=== PATIENT | female | born 1985 | race Caucasian/White ===

== ENCOUNTER 2016-09-29 00:20 | Emergency (ER) | payer OTHER ==
[~2016-09-29] VITALS: Ht 166.4 cm; Wt 104.1 kg
[~2016-09-29 00:20] MED LIST: FERR325T51 PO; PRENTAB26 PO
[2016-09-29 00:26] VITALS: TEMP 36.7; Ht 166.4 cm; Wt 104.1 kg
--- NOTE | 2016-09-29 01:27 | EMERGENCY ROOM VISIT NOTE ---
ED Visit Note First contact with patient: 00:31 Chief Complaint: Tick Bite on LEFT Lower Leg History of Present Illness: Patient is a 31-year-old female who presents to the emergency department today for tick bite to the LEFT lower leg. She reports that she remove the entire tick. She wishes for this to be evaluated as she is concern for possible infection. The patient rates her current discomfort as 0/ 10. She denies any fevers, chills, bodyaches, headaches, chest pain, or Bullseye rash. Tetanus status up-to-date. Medications: Reviewed and discussed with the patient. Allergies: No known allergies. PMH: No pertinent past medical history. SHx: Patient is a 31-year-old female who lives locally. ROS: All pertinent positive and negative review of systems are appropriately documented in the History of Present Illness. Physical Exam: VITAL SIGNS - Vital signs and Nursing Notes were reviewed. GENERAL -31-year-old female, well-developed, well-nourished, and in no acute distress. SKIN -small area of ecchymosis noted to the anterior surface of the LEFT escobar. No surrounding erythema. No warmth to touch. No fluctuance to palpation. No bull's-eye rash. NEURO - Patient is A&Ox3 and communicates appropriately with the provider. ED Course: Patient was seen and evaluated by myself. The patient was treated with a one- time prophylactic dose of doxycycline. Patient will follow-up with her primary care provider or return for any change or worsening symptoms. Patient discharged home in good condition. In the evaluation and treatment of this patient, the following differential diagnoses were considered: Cellulitis, dermatitis, foreign body, Lyme, amongst others. Impression: Tick Bite to LEFT Lower Extremity Discharge Instructions: You've been seen in the emergency department today for a tick bite to the LEFT lower extremity. You've been treated with a one-time dose of doxycycline prophylactically. Follow-up with your primary care provider from today's visit. Return for any changing or worsening symptoms. Problem List Medical Problems: (1) FAM HX-DIABETES MELLITUS Status: Chronic (2) FAMILY HISTORY OF OTHER CARDIOVASCULAR DISEASES Status: Chronic (3) FAMILY HX-MALIGNANCY NOS Status: Chronic (4) LUMBAGO Status: Chronic (5) TOBACCO USE DISORDER Status: Chronic Current/Historical Medications Scheduled Ferrous Sulfate (Iron Supplement), 1 TAB PO 2XWK Multivit/Min/Iron/Fol Ac/Pren ( Vitamin), 2 TAB PO DAILY Allergies Coded Allergies: No Known Allergies (Verified , 09/29/16) Vital Signs Date Time Temp Pulse Resp B/P Pulse Ox O2 Delivery O2 Flow Rate FiO2 09/29/16 01:36 76 18 145/97 96 09/29/16 00:26 36.7 98 20 146/100 98 Room Air Medications Administered Medications (Trade) Dose Ordered Sig/Vivian Route Start Time Stop Time Status Last Admin Dose Admin Doxycycline Hyclate (Vibramycin Cap) 200 mg ONE ONCE PO 09/29/16 01:30 09/29/16 01:31 DC 09/29/16 01:30 200 MG Departure Information Impression Primary Impression: Tick bite Dispostion Home / Self-Care Condition GOOD Referrals Harry Pandey M.D. (PCP) Patient Instructions My [facility] Additional Instructions You've been seen in the emergency department today for a tick bite to the LEFT lower extremity. You've been treated with a one-time dose of doxycycline prophylactically. Follow-up with your primary care provider from today's visit. Return for any changing or worsening symptoms. Problem Qualifiers Primary Impression: Tick bite Encounter type: initial encounter Qualified Codes: W57.XXXA - Bitten or stung by nonvenomous insect and other nonvenomous arthropods, initial encounter
[2016-09-29] MEDS ORDERED: DOXYCYCLINE HYCLATE 100 MG CAP PO ONE (01:30)
[2016-09-29 01:36] VITALS: BP 145/97; PULSE 76; O2SAT 96
== END 2016-09-29 01:37 | disposition home or self-care (01) ==
LOC: C.EDB 00:21
DX: S80.862A Insect bite (nonvenomous), left lower leg, initial encounter (principal); W57.XXXA Bitten or stung by nonvenomous insect and other nonvenomous arthropods, initial encounter; Y92.89 Other specified places as the place of occurrence of the external cause; Z83.3 Family history of diabetes mellitus; Z82.49 Family history of ischemic heart disease and other diseases of the circulatory system; Z80.9 Family history of malignant neoplasm, unspecified; M54.5 Low back pain; Z72.0 Tobacco use

== ENCOUNTER 2018-09-14 08:21 | Inpatient (IN) ==
[2018-09-14] MEDS ORDERED: LACTATED RINGER'S 1,000 ML IV PRN ×2 (08:54→10:17)
[2018-09-14] MEDS ORDERED: OXYTOCIN 30 UNITS/500 ML BAG IV PRN ×2 (08:54→16:24)
[2018-09-14] MEDS ORDERED: LACTATED RINGER'S 1,000 ML IV SCH (09:00)
--- NOTE | 2018-09-14 09:00 | History & Physical Report ---
Date of Service September 14, 2018 Assessment & Plan (1) 39 weeks gestation of : Admit to L&D. Labs, IV, EFM/[place]. OK for epidural when she desires. History of Present Illness Chief Complaint: contractions Primary Care Provider: Harry Pandey MD 33yo @ 39 4/ with worsening contractions overnight. She reports scant vaginal bleeding, no leaking of fluid. + movement. complicated by obesity, tobacco use. Allergies Allergy/AdvReac Type Severity Reaction Status Date / Time No Known Allergies Allergy Verified 09/29/16 00:26 Home Medications Home Medications Medication Instructions Recorded Confirmed Type Multivit/Min/Iron/Fol Ac/Pren 2 tab PO DAILY #0 tab 06/09/15 History ( Vitamin) FERROUS SULFATE (IRON SUPPLEMENT) 1 tab PO 2XWK 30 Days #60 tab 11/22/15 History Physical Exam Vital Signs (Past 24 Hours): Last Vital Signs Pulse 83 09/14/18 08:31 BP 129/78 09/14/18 08:31 Physical Exam: Gen: AAOx3 NAD CV: RRR L: CTAB Abd: soft, gravid, NTTP Ext: no edema SVE: 4/80/-2 FHT: Cat 1 toco: Q 2-4
[2018-09-14 09:15] LABS: Hematocrit (blood only) 35.8 % (37-47); Hemoglobin 12.3 g/dL (12.0-16.0); Mean Corpuscular Volume 84.4 fL (80-100); Mean Platelet Volume 10.5 fL (7.4-10.4); Platelet Count 292 K/uL (130-400); RDW Coefficient of Variation 14.1 % (11.5-14.5); RDW Standard Deviation 43.4 fL (36.4-46.3); Red Blood Count 4.24 M/uL (4.2-5.4); White Blood Count 15.17 K/uL (4.8-10.8)
[2018-09-14] MEDS ORDERED: BUPIVACAINE 0.25% 30 ML VIAL ONE (09:22)
[2018-09-14 09:23] LABS: Mean Corpuscular Hgb Conc 34.4 g/dL (32-36)
[2018-09-14] MEDS ORDERED: ePHEDrine sulfate 50 MG/ML AMP ONE (09:23)
[2018-09-14] MEDS ORDERED: fentaNYL 2MCG/ML ROPIV 1.25MG/ML 100 ML BAG EPI ONE (09:23)
[2018-09-14] MEDS ORDERED: fentaNYL citrate 100 MCG/2 ML VIAL ONE (09:23)
--- NOTE | 2018-09-14 09:49 | Anesthesiology Consultation ---
Date of Service September 14, 2018 Assessment & Plan Chart Review Chart Review: Patient NOT seen in Pre Admission Testing and Acceptable Risk for Labor Epidural Consults Requested none ASA ASA3 Proposed Anesthesia Anesthesia Type: Labor Epidural Risk / Benefits Reviewed With: PT / POA / Parent / Guardian, Accepts Plan and Informed Consent Obtained NPO Date Last Intake of Fluids: 09/14/18 Time Last Intake of Fluids: 05:00 Date Last Intake of Solids: 09/13/18 Time Last Intake of Solids: 19:30 History Height/Weight Height: 5 ft 5.5 in Weight: 113.398 kg Allergies Allergy/AdvReac Type Severity Reaction Status Date / Time No Known Allergies Allergy Verified 09/29/16 00:26 Medications Home Medications Medication Instructions Recorded Confirmed Last Taken Multivit/Min/Iron/Fol Ac/Pren 2 tab PO DAILY #0 tab 06/09/15 Unknown ( Vitamin) FERROUS SULFATE (IRON SUPPLEMENT) 1 tab PO 2XWK 30 Days #60 tab 11/22/15 Unknown Active Medications Generic Name Dose Route Start Last Admin Trade Name Freq PRN Reason Stop Dose Admin Lactated Ringer's 1,000 mls @ 999 mls/hr 09/14/18 08:54 09/14/18 09:37 Lr IV 10/14/18 08:53 999 mls/hr .Q1H1M PRN Administration (Pre-Anesthesia) Past Medical History Medical History Anemia GERD (gastroesophageal reflux disease) Obesity Tobacco abuse Past Anesthesia History No Hx of Anesthesia Complications and No Family Hx of Anesthesia Complications History of PONV No Motion Sickness Screening History of Motion Sickness: No Social History Smoking Status: Current every day smoker Exercise / Class Metabolic Activity II 4-5 Yardwork/Stairs/Walk up hill Physical Exam Vital Signs Last Vital Signs Pulse 91 H 09/14/18 09:39 BP 129/78 09/14/18 08:31 Pulse Ox 98 09/14/18 09:39 Constitutional + obese ENMT Mouth: no dentition abnormality Thyromental Distance: > or= 3.5 Finger Breadths Mallampati Class: II Respiratory normal respiratory effort Auscultation: lungs clear to auscultation bilaterally Cardiovascular Rate/Rhythm: regular rate and regular rhythm Heart Sounds: no murmur Musculoskeletal Spine: lumbar spine normal to inspection; normal cervical ROM Neurologic moves all extremities Motor/Sensory: no sensory deficit Psychiatric Orientation: alert and oriented x 3 Testing Laboratory Results 09/14/18 09:02
[2018-09-14] MEDS ORDERED: PROMETHAZINE HCL 25 MG in SODIUM CHLORIDE 0.9% 50 ML IV PRN (10:17)
[2018-09-14] MEDS ORDERED: DiphenhydrAMINE HCL 50 MG/ML VIAL IV PRN (10:17)
[2018-09-14] MEDS ORDERED: fentaNYL 2MCG/ML ROPIV 1.25MG/ML 100 ML BAG EPI PRN (10:17)
[2018-09-14] MEDS ORDERED: NALBUPHINE HCL INJ 10 MG/ML AMP IV PRN (10:17)
[2018-09-14] MEDS ORDERED: ePHEDrine sulfate 50 MG/ML AMP IV PRN (10:17)
[2018-09-14] MEDS ORDERED: NALOXONE HCL 0.4 MG/1 ML VIAL/CARP IV PRN (10:17)
[2018-09-14] MEDS ORDERED: NALOXONE HCL 1 MG in SODIUM CHLORIDE 0.9% 1000ML 1,000 ML IV PRN (10:17)
[2018-09-14] MEDS ORDERED: ONDANSETRON INJ 2 MG/ML 2 ML VIAL IV PRN (10:17)
--- NOTE | 2018-09-14 16:02 | Procedure Note ---
Vaginal Delivery Summary Date of Service September 14, 2018 Vaginal Delivery Summary Predelivery diagnosis: 33-year-old at 39 weeks 4 days, spontaneous labor, smoker, obesity Postdelivery diagnoses: Same Procedure: Spontaneous vaginal delivery Surgeon: Dr. Barrios Complications: None Estimated blood loss: 300 mL Findings: Viable male , Apgars 8 and 8. Weight pending, please see nursing records. Description of delivery: Patient presented in spontaneous labor, received an epidural, progressed to complete dilation. She then began to push. She spontaneously vaginally delivered a viable male , from the cephalic presentation. The head delivered in the left occiput anterior position. Nuchal cord x1 was noted, easily reduced. The anterior shoulder was delivered, followed by the posterior shoulder, followed by the body. Baby was placed on mother's abdomen, a spontaneous cry was heard. The cord was doubly clamped and cut after 1 minute. Cord blood was obtained, the placenta was delivered spontaneously intact with three-vessel cord. Pitocin was given, the uterus became firm. The uterus and vagina are stopped of all clots and debris. The cervix vagina and perineum were inspected, no lacerations were noted. Excellent Hemostasis was observed. Mother and baby are recovering in the room in stable and good condition. Sponge, instrument, needle counts were correct at the conclusion of the delivery x2.
--- NOTE | 2018-09-14 16:08 | Anesthesia Procedure Note ---
Date of Service September 14, 2018 Anesthesia Post Epidural Note Vital Signs Vital Signs: Temp Pulse Resp BP Pulse Ox 36.7 C 92 H 22 149/81 H 99 09/14/18 14:31 09/14/18 15:57 09/14/18 14:31 09/14/18 15:57 09/14/18 15:19 Notes Mental Status: alert / awake / arousable Nausea / Vomiting: adequately controlled Pain: adequately controlled Airway Patency, RR, SpO2: stable & adequate BP & HR: stable & adequate Hydration State: stable & adequate Neuraxial Anesthesia: was administered Anesthetic Complications: no major complications apparent Epidural: Removed without complications and With tip intact
[2018-09-14] MEDS ORDERED: DIPHTHERIA/TETANUS/PERTUSSIS 0.5 ML SYR/VIAL IM ONE (16:24)
[2018-09-14] MEDS ORDERED: OXYCODONE/ACETAMINOPHEN 5mg/325mg TAB PO PRN (16:24)
[2018-09-14] MEDS ORDERED: BENZOCAINE 20% AER SPR 82.5 GM CAN EXT PRN (16:24)
[2018-09-14] MEDS ORDERED: SUPERCREAM 0.870% 15 GM JAR EXT PRN (16:24)
[2018-09-14] MEDS ORDERED: HYDROCORTISONE ACETATE 25 MG SUPP PR PRN (16:24)
[2018-09-14] MEDS ORDERED: BISACODYL 10 MG SUPP PR PRN (16:24)
[2018-09-14] MEDS: ACETAMINOPHEN 325 MG TAB PO PRN (16:36)
[2018-09-14] MEDS: IBUPROFEN 600 MG TAB PO PRN (20:35)
[2018-09-14] MEDS: DOCUSATE SODIUM 100 MG CAP PO SCH (20:36)
[2018-09-15] MEDS: IBUPROFEN 600 MG TAB PO PRN ×4 (02:59→23:59)
[2018-09-15] MEDS: ACETAMINOPHEN 325 MG TAB PO PRN ×2 (03:00→12:13)
[2018-09-15 06:57] LABS: Hematocrit (blood only) 32.3 % (37-47)
--- NOTE | 2018-09-15 07:53 | Obstetrical Progress Note ---
Date of Service September 15, 2018 Assessment & Plan (1) 39 weeks gestation of : PPD#1 doing well. Continue ambulation, PO fluids. Due to patient's report to RN of not having custody of her older 2 children, will obtain social media marketer consultation. Day #:: 1 Subjective Ambulation: ambulating normally Voiding: no voiding problems Passing Gas:: Yes Diet Tolerance:: regular diet Lochia:: Moderate Feeding Type:: bottle feeding Physical Exam Vital Signs (Past 24 Hours) Last Vital Signs Temp 36.3 C L 09/15/18 07:39 Pulse 66 09/15/18 07:39 Resp 18 09/15/18 07:39 BP 126/84 09/15/18 07:39 Pulse Ox 99 09/14/18 15:19 Gen: AAOx3 NAD CV: RRR L: CTAB Abd: soft, NTTP Ext: no edema
[2018-09-15] MEDS: DOCUSATE SODIUM 100 MG CAP PO SCH ×2 (08:11→21:08)
[2018-09-15] MEDS: PRENATAL VITAMIN 1 TAB PO SCH (08:11)
[2018-09-15] MEDS ORDERED: NON-FORMULARY MEDICATION (Prenatal Vit-Iron Fum-Folic Ac [Prenatal Vitamin] 1 TAB) PO SCH (09:00)
[2018-09-15] MEDS ORDERED: BISACODYL 5 MG TABEC PO SCH (20:00)
[2018-09-16] MEDS: IBUPROFEN 600 MG TAB PO PRN ×2 (04:32→12:35)
--- NOTE | 2018-09-16 07:03 | Obstetrical Progress Note ---
Date of Service <Cleveland Toscano DO - Last Filed: 09/16/18 07:03> September 16, 2018 Assessment & Plan <Cleveland Toscano DO - Last Filed: 09/16/18 07:03> (1) 39 weeks gestation of : PPD#2 - continue routine post- care until discharge home later today, discharge instructions reviewed at bedside - commissioner of relocation services consult for patient's report to RN of not having custody of her older 2 children Subjective <Cleveland Toscano - Last Filed: 09/16/18 07:03> Ambulation: ambulating normally Voiding: no voiding problems Passing Gas:: Yes Diet Tolerance:: regular diet Lochia:: Small Feeding Type:: bottle feeding Tyra states she is doing well and is ready for discharge home today. She denies fever, chills, chest pain, nausea, vomiting, headache. Physical Exam <Cleveland Toscano - Last Filed: 09/16/18 07:03> Vital Signs (Past 24 Hours) Last Vital Signs Temp 36.5 C 09/15/18 23:05 Pulse 61 09/15/18 23:05 Resp 18 09/15/18 23:05 BP 113/77 09/15/18 23:05 Pulse Ox 99 09/14/18 15:19 Constitutional WD/WN, vitals as above cooperative and comfortable Eyes + anicteric sclerae Neck normal visual inspection and trachea midline Respiratory normal respiratory effort, lungs clear to auscultation Cardiovascular Rate/Rhythm: regular rate and regular rhythm Heart Sounds: no murmur Gastrointestinal (Abdomen) uterine fundus is firm, non-tender, 3cm inferior to umbilicus Skin no rashes, warm and dry Neurologic moves all extremities and awake Psychiatric A+Ox3, euthymic affect Results & Data <Cleveland Toscano - Last Filed: 09/16/18 07:03> Medications Administered Acetaminophen (Tylenol) 650 mg PO Q6H PRN PRN Reason: Pain/MATOS/Fever Stop: 10/14/18 16:23 Last Admin: 09/15/18 12:13 Dose: 650 mg Documented by: [id number] Admin: 09/15/18 03:00 Dose: 650 mg Documented by: [id number] Admin: 09/14/18 16:36 Dose: 650 mg Documented by: [id number] Docusate Sodium (Colace) 100 mg PO BID FELIPE Stop: 10/14/18 20:59 Last Admin: 09/15/18 21:08 Dose: Not Given Documented by: [id number] Admin: 09/15/18 08:11 Dose: Not Given Documented by: [id number] Admin: 09/14/18 20:36 Dose: 100 mg Documented by: [id number] Ibuprofen (Motrin) 600 mg PO Q4H PRN PRN Reason: Pain/MATOS/Cramping/Fever Stop: 10/14/18 16:23 Last Admin: 09/16/18 04:32 Dose: 600 mg Documented by: [id number] Admin: 09/15/18 23:59 Dose: 600 mg Documented by: [id number] Admin: 09/15/18 17:38 Dose: 600 mg Documented by: [id number] Admin: 09/15/18 10:27 Dose: 600 mg Documented by: [id number] Admin: 09/15/18 02:59 Dose: 600 mg Documented by: [id number] Admin: 09/14/18 20:35 Dose: 600 mg Documented by: [id number] Oxycodone/Acetaminophen (Percocet 5mg/325mg) 1 tab PO Q4H PRN PRN Reason: Pain not relieved by... Stop: 09/28/18 16:23 Last Admin: 09/15/18 06:39 Dose: 1 tab Documented by: [id number] Prenat Multivit/Lumber Marker/Iron/Folic Ac ( Vitamin) 1 tab PO QAM [facility] Stop: 10/15/18 08:59 Last Admin: 09/15/18 08:11 Dose: 1 tab Documented by: [id number] <Roz Barrios, - Last Filed: 09/16/18 07:40> Co-Signing Physician Notes I have seen/examined patient. I have read above note performed by resident and I agree with above. Any changes/additions are as follows: PPD#2 doing well. DC to home. commissioner of relocation services was consulted and has seen patient. Roz Barrios DO [facility]
[2018-09-16] MEDS: DOCUSATE SODIUM 100 MG CAP PO SCH (08:45)
[2018-09-16] MEDS: PRENATAL VITAMIN 1 TAB PO SCH (08:45)
== END 2018-09-16 14:00 | disposition home or self-care (01) | DRG 806 ==
LOC: OPB 08:21 → 4S1 08:22 → 4S2 17:50